=== PATIENT | female | born 1955 ===

== ENCOUNTER 2019-07-04 17:05 | Emergency (ER) | payer MEDICARE, OTHER ==
--- NOTE | 2019-07-04 17:48 | EDM.PDOC ---
ED HPI GENERAL MEDICAL PROBLEM - General Chief Complaint: Headache Stated Complaint: SORE THROAT Time Seen by Provider: 07/04/19 17:27 Source of Information: Reports: Patient, RN Notes Reviewed - History of Present Illness INITIAL COMMENTS - FREE TEXT/NARRATIVE: 64 yr old female comes in with cough, sore throat, off and on Menendez for about the past week. Cough has been nonproductive. No fever or chills. She has not been short of breath. Throat Pain Score (Numeric/FACES): 3 - Related Data Allergies Allergy/AdvReac Type Severity Reaction Status Date / Time Sulfa (Sulfonamide Allergy Other Verified 07/04/19 17:25 Antibiotics) Home Meds: Home Meds Aspirin [Halfprin] 1 tab PO DAILY 07/04/19 [History] B6/FA/B12/Co Q10/Herb No.225 [Healthy Heart Complex Tablet] 1 tab PO DAILY 07/03 [History] Cephalexin [Keflex] 500 mg PO Q8HR #20 capsule 07/04/19 [Rx] Dorzolamide HCl/Pf [Dorzolamide 2% Eye Drop] 1 drop EYEBOTH BID 07/04/19 [ History] FLUoxetine [PROzac] 1 tab PO DAILY 07/04/19 [History] Fexofenadine [Shira] 1 tab PO DAILY 07/04/19 [History] Latanoprost/Pf [Latanoprost 0.005% Eye Drop] 1 drop EYEBOTH BEDTIME 07/04/19 [ History] Mecobalamin [B12 Active] 1 tab PO DAILY 07/04/19 [History] Multivit-Min/FA/Lycopen/Lutein [Centrum Silver Tablet] 1 tab PO DAILY 07/04/19 [ History] atorvaSTATin [Lipitor] 1 tab PO DAILY 07/04/19 [History] ED ROS GENERAL - Review of Systems Review Of Systems: See Below Constitutional: Denies: Fever, Chills HEENT: Reports: Throat Pain Respiratory: Reports: Cough. Denies: Sputum Cardiovascular: Denies: Chest Pain GI/Abdominal: Denies: Abdominal Pain, Nausea, Vomiting Musculoskeletal: Reports: No Symptoms Skin: Reports: No Symptoms Neurological: Reports: Headache (off and on) ED EXAM, GENERAL - Physical Exam Exam: See Below General Appearance: Alert, No Apparent Distress Throat/Mouth: Normal Inspection Head: Atraumatic Neck: Supple Respiratory/Chest: No Respiratory Distress, Lungs Clear Cardiovascular: Regular Rate, Rhythm Extremities: Normal Inspection, Normal Range of Motion Neurological: Alert, Oriented, No Motor/Sensory Deficits Skin Exam: Warm, Dry, Normal Color Course - Vital Signs Last Recorded V/S: Last Vital Signs Temp 98 F 07/04/19 17:19 Pulse 78 07/04/19 17:19 Resp 16 07/04/19 17:19 BP 105/74 07/04/19 17:19 Pulse Ox 99 07/04/19 17:19 - Orders/Labs/Meds Meds: Medications Discontinued Medications Generic Name Dose Route Start Last Admin Trade Name Mark PRN Reason Stop Dose Admin Cephalexin 500 mg 07/04/19 19:05 07/04/19 19:43 Keflex PO 07/04/19 19:06 500 mg ONETIME ONE Administration Departure - Departure Time of Disposition: 19:03 Disposition: Home, Self-Care 01 Clinical Impression: Pharyngitis, Viral URI with cough, Lung granuloma - Discharge Information Prescriptions: Cephalexin [Keflex] 500 mg PO Q8HR #20 capsule Instructions: Upper Respiratory Infection, Adult, [id number], Cough, Adult, Pharyngitis, [id number] Referrals: PCP,Not In Area [Primary Care Provider] - Forms: ED Department Discharge Additional Instructions: You have been given cephalexin 500 mg oral here in the ED. Continue that 3 times daily for 1 week or until gone. Prescription has been sent electronically to [facility], you can pick that up tomorrow morning. You have been screened for covid 19. Results will go to the state lab tomorrow. You should get called with results from ED Friday or . If you have not heard results by 6 PM Weds feel free to contact our ED at [phone] to check on that[address] CT chest strongly recomended to further evaluate small granuloma L chest. Order has been written for CT chest and will be sent to Radiology. They will call you in the morning for a time. Follow up with Dr Jackson or one of our other providers after the CT has been done for results. Sepsis Event Note - Evaluation Sepsis Screening Result: No Definite Risk - Focused Exam Date Exam was Performed: 07/06/19 Time Exam was Performed: 10:45
--- NOTE | 2019-07-04 18:00 | CR ---
Chest: Portable view of the chest was obtained. Comparison: No prior chest imaging is available. Heart size and mediastinum are normal. Small nodule is noted within the left mid lung. Lungs otherwise are clear. Bony structures are grossly intact. Impression: 1. Small nodule within the left midlung. This most likely represents a granuloma although noncontrast chest CT could be considered to confirm. 2. Nothing acute is otherwise seen on portable chest x-ray. Diagnostic code #9 This report was dictated in MDT
[2019-07-04] MEDS ORDERED: Cephalexin 500 MG Cap PO ONE (19:05)
== END 2019-07-04 19:45 | disposition home or self-care (01) ==
LOC: JD.ED 17:05
DX: J02.9 Acute pharyngitis, unspecified (principal); J84.10 Pulmonary fibrosis, unspecified; Z88.2 Allergy status to sulfonamides; Z79.899 Other long term (current) drug therapy; Z20.828 Contact with and (suspected) exposure to other viral communicable diseases
CPT/HCPCS: 71045; 99283; A9270; U0002